=== PATIENT | female | born 1945 | race Caucasian/White ===

== ENCOUNTER 2018-04-13 20:36 | Inpatient (IN) | payer MEDICARE ==
[~2018-04-13] VITALS: Ht 157.5 cm; Wt 50.9 kg
[2018-04-13] MEDS ORDERED: HYDR-4061 PO (20:46)
[2018-04-13 21:46] LABS: BASOPHILS % (AUTO) 1.2 % (0.0-2.0); EOSINOPHILS % (AUTO) 2.5 % (1.0-6.0); HEMATOCRIT 30.7 % (36-46); HEMOGLOBIN 10.8 g/dL (12.0-16.0); LYMPHOCYTES # (AUTO) 2.9 K/uL (1.0-4.8); LYMPHOCYTES % (AUTO) 40.9 % (22.0-44.0); MEAN CORPUSCULAR HEMOGLOBIN 31.3 pg (26.0-34.0); MEAN CORPUSCULAR VOLUME 89 fL (80-100); MONOCYTES # (AUTO) 0.5 K/uL (0.1-1.0); MONOCYTES % (AUTO) 7.2 % (2.0-9.0); NEUTROPHILS # (AUTO) 3.4 K/uL (1.8-7.7); NEUTROPHILS % (AUTO) 48.2 % (40.0-70.0); PLATELET COUNT (AUTO) 270 K/uL (150-450); RED BLOOD CELL COUNT(AUTO) 3.44 MIL/uL (4.00-5.20); RED CELL DISTRIBUTION WIDTH 13.2 % (11.5-14.5)
[2018-04-13 21:53] LABS: CALCIUM, TOTAL 9.1 mg/dL (8.8-10.5); CREATININE 0.94 mg/dL (0.60-1.30); POTASSIUM 3.1 mmol/L (3.5-5.1)
[2018-04-13 21:59] LABS: ALBUMIN 3.1 g/dL (3.4-5.0); BILIRUBIN,TOTAL 0.8 mg/dL (0.1-1.0); TOTAL PROTEIN, SERUM 6.5 g/dL (6.4-8.2)
[2018-04-13 22:04] LABS: INR 0.9 (0.9-1.1); PROTHROMBIN TIME 9.5 SEC (9.4-11.6)
[2018-04-13] MEDS: POTASSIUM CHLORIDE 20 MEQ ER TABLET PO ONE ×2 (22:15→22:47)
[2018-04-13] MEDS ORDERED: MORPHINE SULFATE 4 MG/ML SYRINGE IVP ONE (22:15)
[2018-04-13] MEDS ORDERED: MORPHINE SULFATE 4 MG/ML SYRINGE IVP PRN (22:30)
[2018-04-13] MEDS ORDERED: POTASSIUM CHL 20 MEQ/D5-0.45NS 1,000 ML IV ONE (22:30)
[2018-04-13] MEDS ORDERED: 0.9% SODIUM CHLORIDE 10 ML SYRINGE IVP PRN ×2 (22:30→23:15)
[2018-04-13] MEDS ORDERED: ONDANSETRON HCL 4 MG/2 ML VIAL IVP PRN ×2 (22:30→23:15)
[2018-04-13] MEDS ORDERED: HYDROCODONE/ACETAMINOPHEN 5-325 MG TABLET PO ONE (22:45)
[2018-04-13] MEDS ORDERED: MAGNESIUM SULFATE 4 GM/WATER 100 ML IV PRN (23:15)
[2018-04-13] MEDS ORDERED: POTASSIUM CHLORIDE 20 MEQ ER TABLET PO PRN (23:15)
[2018-04-13] MEDS ORDERED: MAGNESIUM SULFATE 2 GM/WATER 50 ML IV PRN (23:15)
[2018-04-13] MEDS ORDERED: ZOLPIDEM TARTRATE 5 MG TABLET PO PRN (23:15)
[2018-04-13] MEDS ORDERED: MAGNESIUM OXIDE 400 MG TABLET PO PRN (23:15)
[2018-04-13 23:25] VITALS: BP 146/80
[2018-04-14] VITALS (7 sets, daily range): BP systolic 134–158; BP diastolic 74–95
[2018-04-14] MEDS ORDERED: PNEUMOCOCCAL VACCINE POLYVALENT 0.5 ML VIAL [PPSV23] IM ONE (00:45)
[2018-04-14] MEDS ORDERED: SODIUM CHLORIDE 0.9% 250 ML IV ONE (01:07)
[2018-04-14] MEDS: POTASSIUM CHL 10 MEQ/WATER 50 ML IV PRN ×3 (01:15→04:02)
[2018-04-14] MEDS ORDERED: SODIUM CHLORIDE 0.9% 50 ML ONE (01:41)
[2018-04-14] MEDS ORDERED: SODIUM CHLORIDE 0.9% 500 ML IV ONE (01:41)
[2018-04-14] MEDS ORDERED: SODIUM CHLORIDE 0.9% 100 ML ONE (02:24)
[2018-04-14] MEDS: MORPHINE SULFATE 4 MG/ML SYRINGE IVP PRN ×3 (03:27→13:38)
[2018-04-14] MEDS: MVI, ADULT NO.1 WITH VIT K 10 ML in SODIUM CHLORIDE 0.9% 1,000 ML IV SCH ×2 (05:51)
[2018-04-14 07:12] LABS: MAGNESIUM 1.5 mg/dL (1.80-2.40); POTASSIUM 3.7 mmol/L (3.5-5.1)
[2018-04-14] MEDS: PANTOPRAZOLE SODIUM 40 MG/VIAL IVP SCH (08:48)
[2018-04-14] MEDS: HYDROCODONE/ACETAMINOPHEN 5-325 MG TABLET PO PRN ×2 (17:03→22:07)
[2018-04-15 04:10] VITALS: BP 134/83
[2018-04-15] MEDS: MVI, ADULT NO.1 WITH VIT K 10 ML in SODIUM CHLORIDE 0.9% 1,000 ML IV SCH ×2 (06:34)
[2018-04-15] MEDS: PANTOPRAZOLE SODIUM 40 MG/VIAL IVP SCH (08:07)
[2018-04-15 08:17] VITALS: BP_SYST 143; BP_SYST 149; BP_DIAS 83; BP_DIAS 96
[2018-04-15] MEDS: HYDROCODONE/ACETAMINOPHEN 5-325 MG TABLET PO PRN ×3 (08:49→20:29)
[2018-04-15 11:16] VITALS: BP_SYST 142; BP_SYST 151; BP_DIAS 72; BP_DIAS 89
[2018-04-15 15:40] VITALS: BP 138/80
[2018-04-15 19:35] VITALS: BP 154/84
[2018-04-16 00:02] VITALS: BP 115/73
[2018-04-16] MEDS: MVI, ADULT NO.1 WITH VIT K 10 ML in SODIUM CHLORIDE 0.9% 1,000 ML IV SCH ×2 (00:09)
[2018-04-16 05:55] VITALS: BP 145/89
[2018-04-16] MEDS: HYDROCODONE/ACETAMINOPHEN 5-325 MG TABLET PO PRN ×3 (05:58→14:35)
[2018-04-16 07:41] VITALS: BP 145/80
[2018-04-16] MEDS: PANTOPRAZOLE SODIUM 40 MG/VIAL IVP SCH (09:29)
[2018-04-16 12:10] VITALS: BP 151/89
[2018-04-16 16:35] VITALS: BP 144/88
== END 2018-04-16 19:15 | disposition home or self-care (01) | DRG 563 ==
LOC: EMS 20:37 → 6N 22:00
PROVIDERS: ADMIT Internal Medicine; ATTEND Internal Medicine
DX: S42.211A Unspecified displaced fracture of surgical neck of right humerus, initial encounter for closed fracture (principal); E87.6 Hypokalemia; R63.0 Anorexia; H54.61 Unqualified visual loss, right eye, normal vision left eye; Y93.89 Activity, other specified; Y92.89 Other specified places as the place of occurrence of the external cause; Y99.8 Other external cause status; W01.0XXA Fall on same level from slipping, tripping and stumbling without subsequent striking against object, initial encounter; Z88.5 Allergy status to narcotic agent; Z28.21 Immunization not carried out because of patient refusal
CPT/HCPCS: 83735; 84132; 87081; C9113; G0378; J2270; J3475; J3480; J3490; J7030; J7040; J7050